=== PATIENT | female | born 1965 | race Caucasian/White ===

== ENCOUNTER 2019-09-11 15:23 | Emergency (ER) | payer OTHER ==
[2019-09-11] MEDS ORDERED: METOCLOPRAMIDE HCL ORAL SOLN 10 MG/10 ML UDCUP PO ONE (15:41)
[2019-09-11] MEDS ORDERED: LIDOCAINE 2% VISCOUS SOLN 15 ML UDCUP PO ONE (15:41)
[2019-09-11] MEDS ORDERED: MAG HYDROX/AL HYDROX/SIMETH SUSP 30 ML UDCUP PO ONE (15:41)
--- NOTE | 2019-09-11 15:43 | ER Document Report ---
ED Medical Screen (RME) - General Chief Complaint: Abdominal Pain Stated Complaint: UPPER ABDOMINAL PAIN Time Seen by Provider: 09/11/19 15:39 Mode of Arrival: Ambulatory Information source: Patient Notes: 53-year-old female with history of reflux presents to the emergency department with complaints of sharp stabbing epigastric pain that started approximately 0730 this morning. She took her Protonix without relief of symptoms. Denies fever vomiting diarrhea. Patient is moaning complaining of severe epigastric pain. I have greeted and performed a rapid initial assessment of this patient. A comprehensive ED assessment and evaluation of the patient, analysis of test results and completion of the medical decision making process will be conducted by additional ED providers. - Related Data Allergies/Adverse Reactions: No Known Allergies Allergy (Unverified 09/11/19 15:37) Past Medical History - Social History Chew tobacco use (# tins/day): No Frequency of alcohol use: None Drug Abuse: None Physical Exam - Vital signs Vitals: Temp Pulse Resp BP Pulse Ox 97.9 F 77 22 H 118/82 96 09/11/19 15:35 09/11/19 15:35 09/11/19 15:35 09/11/19 15:35 09/11/19 15:35 Course - Vital Signs Vital signs: Temp Pulse Resp BP Pulse Ox 97.9 F 77 22 H 118/82 96 09/11/19 15:35 09/11/19 15:35 09/11/19 15:35 09/11/19 15:35 09/11/19 15:35
[2019-09-11] MEDS ORDERED: HYDROMORPHONE HCL INJ/PF 2 MG/ML AMPULE IV ONE ×2 (16:28→19:33)
[2019-09-11] MEDS ORDERED: ONDANSETRON HCL INJ/PF 4 MG/2 ML SDV IV ONE (16:28)
[2019-09-11 16:32] LABS: ABSOLUTE EOSINOPHILS # (AUTO) 0.1 10^3/uL (0.0-0.6); ABSOLUTE MONOCYTES (AUTO) 0.3 10^3/uL (0.1-1.4); ABSOLUTE NEUT (AUTO) 3.1 10^3/uL (1.7-8.2); BASOPHILS % (AUTO) 0.8 % (0-2); EOSINOPHILS % (AUTO) 1.8 % (0-6); HEMATOCRIT 42.7 % (36.0-47.0); HEMOGLOBIN 14.7 g/dL (12.0-15.5); LYMPHOCYTES % (AUTO) 21.7 % (13-45); MEAN CORPUSCULAR HGB CONC 34.5 g/dL (32.0-36.0); MEAN CORPUSCULAR VOLUME 102 fl (80-97); MONOCYTES % (AUTO) 6.5 % (3-13); PLATELET COUNT 244 10^3/uL (150-450); RED BLOOD COUNT 4.21 10^6/uL (3.72-5.28); RED CELL DISTRIBUTION WIDTH 12.3 % (11.5-14.0); SEGMENTED NEUTROPHILS % (AUTO) 69.2 % (42-78); TOTAL CELLS COUNTED % (AUTO) 100 %; WHITE BLOOD COUNT 4.5 10^3/uL (4.0-10.5)
[2019-09-11] MEDS ORDERED: NORMAL SALINE 1000 ML 1,000 ML IV ONE ×2 (16:33→19:59)
--- NOTE | 2019-09-11 16:33 | ER Document Report ---
ED General - General Chief Complaint: Abdominal Pain Stated Complaint: UPPER ABDOMINAL PAIN Time Seen by Provider: 09/11/19 15:39 Primary Care Provider: TIEN KINNEY MD [Primary Care Provider] - Follow up as needed Mode of Arrival: Ambulatory - HPI Notes: Patient is a 53-year-old female who presents emergency department for evaluation of stabbing epigastric pain. She states it was present upon waking, believes it possibly woke her. She states the pain does not radiate, but her chronic sciatica pain seems worse. She had a normal bowel movement this morning. She denies any fevers or chills. No nausea or vomiting. She has not noticed anything that changes the pain. No urinary symptoms. - Related Data Allergies/Adverse Reactions: No Known Allergies Allergy (Unverified 09/11/19 15:37) Home Medications: Protonix, Wellbutrin, iron Past Medical History - General Information source: Patient - Social History Smoking Status: Never Smoker Chew tobacco use (# tins/day): No Frequency of alcohol use: None Drug Abuse: None Family History: CAD, COPD Patient has suicidal ideation: No Patient has homicidal ideation: No GI Medical History: Reports: Hx Gastroesophageal Reflux Disease Psychiatric Medical History: Reports: Hx Depression Past Surgical History: Reports: Hx Cholecystectomy, Hx Gastric Bypass Surgery, Hx Tubal Ligation Review of Systems - Review of Systems Gastrointestinal: See HPI -: Yes All other systems reviewed and negative Physical Exam - Vital signs Vitals: Temp Pulse Resp BP Pulse Ox 97.9 F 77 22 H 118/82 96 09/11/19 15:35 09/11/19 15:35 09/11/19 15:35 09/11/19 15:35 09/11/19 15:35 - Notes Notes: This is a pleasant 53-year-old female who appears her stated age in a moderate amount of distress. She is pacing around the room, intermittently clutching her epigastrium. Vital signs reviewed, please refer to chart. Head is normocephalic, atraumatic. Pupils equal round, reactive to light. Neck is supple without meningismus. Heart is regular rate and rhythm. Lungs are clear to auscultation bilaterally. Abdomen is soft, moderately tender in the epigastrium without rebound or guarding, mildly tender in the left upper quadrant, normoactive bowel sounds throughout. No peritoneal signs. Extremities without cyanosis, clubbing. Posterior calves are nontender. Peripheral pulses are equal. Skin is warm and dry. Patient is awake, alert, neurological exam is nonfocal. Course - Re-evaluation Re-evalutation: 09/11/19 16:32 Patient presents to the emergency department for evaluation of epigastric pain. She is never had pain quite like this. She was initially treated with a GI cocktail which offered her no relief. I did place an order for Dilaudid and Zofran, awaiting laboratory investigations. Patient is stable, we will continue to monitor. 09/11/19 19:57 Patient's laboratory investigations and CT scan are entirely unremarkable. Serial abdominal exams were performed, she remains tender but nonsurgical. I did further medicate her with Dilaudid and Pepcid. I am notified by nursing at this time that she is vomiting. I will order Phenergan and IV fluids. 09/11/19 20:48 Patient is stable. Serial abdominal exams again are nonsurgical. I will send her home with Zofran, instructions to return with worsening. She voiced unde rstanding and was discharged. - Vital Signs Vital signs: Temp Pulse Resp BP Pulse Ox 97.6 F 71 18 106/57 L 99 09/11/19 19:39 09/11/19 19:39 09/11/19 19:39 09/11/19 19:39 09/11/19 19:39 - Laboratory Result Diagrams: 09/11/19 15:45 09/11/19 15:45 Laboratory results interpreted by me: 09/11/19 09/11/19 09/11/19 15:45 15:45 15:45 MCV 102 H MCH 35.0 H Carbon Dioxide 31 H Urine Blood SMALL H Ur Leukocyte Esterase TRACE H Discharge - Discharge Clinical Impression: Epigastric abdominal pain Nausea and vomiting Qualifiers: Vomiting type: unspecified Vomiting Intractability: non-intractable Qualified Code(s): R11.2 - Nausea with vomiting, unspecified Condition: Stable Disposition: HOME, SELF-CARE Instructions: Abdominal Pain ([facility]), Intravenous (IV) Fluids ([facility]), Vomiting ([facility]) Additional Instructions: No clear cause is found for your abdominal pain today. Clear liquids only. Zofran as needed for nausea and vomiting. Follow-up with your primary care provider on Friday. If your pain worsens, or you develop new or concerning symptoms of any sort, please return immediately to the emergency department for evaluation. Referrals: TIEN KINNEY MD [Primary Care Provider] - Follow up as needed
[2019-09-11 16:36] LABS: APPEARANCE,URINE SLIGHTLY-CLOUDY; BILIRUBIN,URINE NEGATIVE (NEGATIVE); COLOR,URINE YELLOW; GLUCOSE, URINE NEGATIVE (NEGATIVE); KETONES,URINE NEGATIVE (NEGATIVE); LEUKOCYTE ESTERASE,URINE TRACE (NEGATIVE); NITRITE,URINE NEGATIVE (NEGATIVE); PROTEIN,URINE NEGATIVE (NEGATIVE); URINE SPECIFIC GRAVITY 1.023; UROBILINOGEN,URINE NEGATIVE mg/dL (<2.0)
[2019-09-11 16:49] LABS: ALBUMIN 4.4 g/dL (3.5-5.0); ALKALINE PHOSPHATASE 97 U/L (38-126); AMYLASE 49 U/L (30-110); ANION GAP 5 (5-19); ASPARTATE AMINO TRANSFERASE 33 U/L (14-36); BILIRUBIN,DIRECT 0.2 mg/dL (0.0-0.4); BILIRUBIN,TOTAL 0.6 mg/dL (0.2-1.3); BLOOD UREA NITROGEN 18 mg/dL (7-20); CALCIUM 9.3 mg/dL (8.4-10.2); CARBON DIOXIDE 31 mmol/L (22-30); CHLORIDE 101 mmol/L (98-107); GLUCOSE 106 mg/dL (75-110); POTASSIUM 4.1 mmol/L (3.6-5.0)
--- NOTE | 2019-09-11 18:59 | RADIOLOGY REPORT (SQ) ---
EXAM DESCRIPTION: CT ABD/PELVIS WITH IV ONLY IMAGES COMPLETED DATE/TIME: 09/11/2019 5:32 pm REASON FOR STUDY: abdominal pain. Diffuse abdominal pain. COMPARISON: None. TECHNIQUE: CT scan of the abdomen and pelvis performed using helical scanning technique with dynamic intravenous contrast injection. No oral contrast. Images reviewed with lung, soft tissue, and bone windows. Reconstructed coronal and sagittal MPR images reviewed. Delayed images for evaluation of the urinary system also acquired. All images stored on PACS. All CT scanners at this facility use dose modulation, iterative reconstruction, and/or weight based d osing when appropriate to reduce radiation dose to as low as reasonably achievable (ALARA). [facility]: Dose Right [facility]: CareDose [facility]: Dose Right [facility]: Teradose 4D [facility]: [employer] CONTRAST TYPE AND DOSE: contrast/concentration: Isovue 350.00 mg/ml; Total Contrast Delivered: 97.0 ml; Total Saline Delivered: 72.0 ml RENAL FUNCTION: GFR > 60. RADIATION DOSE: CT Rad equipment meets quality standard of care and radiation dose reduction techniq ues were employed. CTDIvol: 13.6 - 17.4 mGy. DLP: 1852 mGy-cm.. LIMITATIONS: None. FINDINGS: LOWER CHEST: No significant findings. No nodules or infiltrates. LIVER: Normal size. No masses. No dilated ducts. SPLEEN: Normal size. No focal lesions. PANCREAS: No masses. No significant calcifications. No adjacent inflammation or peripancreatic fluid collections. Pancreatic duct not dilated. GALLBLADDER: No identified stones by CT criteria. No inflammatory changes to suggest cholecystitis. ADRENAL GLANDS: No significant masses or asymmetry. RIGHT KIDNEY AND URETER: No solid masses. No significant calcifications. No hydronephrosis or hyd roureter. LEFT KIDNEY AND URETER: Small left renal cortical cyst. No solid enhancing renal mass. No signific ant calcifications. No hydronephrosis or hydroureter. AORTA AND VESSELS: No aneurysm. No dissection. Renal arteries, SMA, celiac without stenosis. RETROPERITONEUM: No retroperitoneal adenopathy, hemorrhage or masses. BOWEL AND PERITONEAL CAVITY: Status post gastric bypass. No bowel obstruction. No bowel wall thicke marylu. No significant inflammatory change. No ascites or pneumoperitoneum. APPENDIX: Normal. PELVIS: No mass. No free fluid. Normal bladder. ABDOMINAL WALL: No masses. No hernias. BONES: No significant or acute findings. OTHER: No other significant finding. IMPRESSION: No acute abnormality in the abdomen or pelvis to explain the patient's symptoms. Status post gastric bypass. No bowel obstruction. TECHNICAL DOCUMENTATION: JOB ID: [id number] Quality ID # [id number]: Final reports with documentation of one or more dose reduction techniques (e.g., Au tomated exposure control, adjustment of the mA and/or kV according to patient size, use of iterative reconstruction technique) 2010 [employer]- All Rights Reserved Reading location - IP/workstation name: [email or web address]
[2019-09-11] MEDS ORDERED: FAMOTIDINE INJ/PF 20 MG/2 ML SDV IV ONE (19:33)
[2019-09-11] MEDS ORDERED: PROMETHAZINE HCL INJ 25 MG/1 ML VIAL IV ONE (19:59)
[2019-09-11] MEDS ORDERED: ONDANSETRON ODT 4 MG TAB (6 TAB/ER DISP) PO PRN (20:49)
[2019-09-11 21:13] VITALS: BP 108/69
== END 2019-09-11 21:14 | disposition home or self-care (01) ==
LOC: ER 15:23
DX: R10.13 Epigastric pain (principal); R10.816 Epigastric abdominal tenderness; R11.2 Nausea with vomiting, unspecified; K21.9 Gastro-esophageal reflux disease without esophagitis; F32.9 Major depressive disorder, single episode, unspecified; Z79.899 Other long term (current) drug therapy; Z98.84 Bariatric surgery status; Z90.49 Acquired absence of other specified parts of digestive tract; Z98.51 Tubal ligation status
CPT/HCPCS: 96376; 99284; 96361; 96374; 96375; 36415; 82150; 83690; 85025; 80053; 81001; 74177; J3490; J1170; J2550; J2405; J7030; S0028